=== PATIENT | male | born 1950 | race Two or more races ===

== ENCOUNTER 2017-07-19 07:54 | Outpatient (CLI) | payer OTHER ==
[~2017-07-19 07:54] MED LIST: ASA-EC81 MG; NABUMETONE500 MG PO; PERCOCET 5/3251 TAB PO; TAMS0.4C; TOPROL XL25 M1; VASOTEC20 MG
== END 2017-07-19 08:01 | disposition home or self-care (01) ==
LOC: LAB 07:54
DX: I10 Essential (primary) hypertension (principal); E66.8 Other obesity; Z96.651 Presence of right artificial knee joint; R07.89 Other chest pain; M22.41 Chondromalacia patellae, right knee; M67.863 Other specified disorders of tendon, right knee; M75.21 Bicipital tendinitis, right shoulder; N39.0 Urinary tract infection, site not specified; M12.00 Chronic postrheumatic arthropathy [Jaccoud], unspecified site; S83.31XA Tear of articular cartilage of right knee, current, initial encounter; M23.52 Chronic instability of knee, left knee; M23.221 Derangement of posterior horn of medial meniscus due to old tear or injury, right knee; M15.0 Primary generalized (osteo)arthritis; N41.0 Acute prostatitis; N39.3 Stress incontinence (female) (male)

== ENCOUNTER 2017-10-18 07:07 | Outpatient (CLI) | payer OTHER | END 2017-10-18 07:12 | disposition home or self-care (01) | LOC: LAB 07:07 | DX: I10 Essential (primary) hypertension (principal); E66.8 Other obesity; R07.89 Other chest pain; M22.41 Chondromalacia patellae, right knee; M67.863 Other specified disorders of tendon, right knee; M75.21 Bicipital tendinitis, right shoulder; N39.8 Other specified disorders of urinary system; M23.221 Derangement of posterior horn of medial meniscus due to old tear or injury, right knee; M15.0 Primary generalized (osteo)arthritis; N41.0 Acute prostatitis; N39.3 Stress incontinence (female) (male) ==

== ENCOUNTER 2017-10-20 09:58 | Outpatient (CLI) | payer OTHER | END 2017-10-20 10:04 | disposition home or self-care (01) | LOC: MRI 09:58 | DX: M54.16 Radiculopathy, lumbar region (principal) | CPT/HCPCS: 72148 ==

== ENCOUNTER 2017-12-19 21:14 | Emergency (ER) | payer OTHER ==
[~2017-12-19] VITALS: Ht 175.3 cm; Wt 108.9 kg
[2017-12-20] MEDS ORDERED: PHENERGAN25 MG PO (02:44)
[2017-12-20] MEDS ORDERED: PEPCID AC20 MG PO (02:44)
[2017-12-20] MEDS ORDERED: LEVSIN/SL0.125 MG PO (02:44)
== END 2017-12-20 03:07 | disposition home or self-care (01) ==
LOC: ER 21:14
DX: K29.60 Other gastritis without bleeding (principal); R10.84 Generalized abdominal pain

== ENCOUNTER 2018-04-27 10:06 | Emergency (ER) | payer OTHER ==
[~2018-04-27] VITALS: Ht 175.3 cm; Wt 104.3 kg
[~2018-04-27 10:06] MED LIST changes: +LEVSIN/SL0.125 MG PO; +PEPCID AC20 MG PO; +PHENERGAN25 MG PO
[2018-04-27] MEDS ORDERED: TOPROL XL100 M1 (10:31)
[2018-04-27] MEDS ORDERED: ENALAPRIL MALEA10 MG (10:31)
== END 2018-04-27 12:30 | disposition home or self-care (01) ==
LOC: ER 10:06
DX: M48.061 Spinal stenosis, lumbar region without neurogenic claudication (principal); M54.89 Other dorsalgia

== ENCOUNTER 2018-04-29 14:31 | Outpatient (CLI) | payer OTHER ==
[~2018-04-29 14:31] MED LIST changes: +ENALAPRIL MALEA10 MG; +TOPROL XL100 M1
== END 2018-04-29 14:37 | disposition home or self-care (01) ==
LOC: RAD 14:31
DX: M25.561 Pain in right knee (principal)

== ENCOUNTER 2018-05-01 07:26 | Outpatient (CLI) | payer OTHER | END 2018-05-01 07:37 | disposition home or self-care (01) | LOC: LAB 07:26 | DX: E66.8 Other obesity (principal); M22.41 Chondromalacia patellae, right knee; M67.863 Other specified disorders of tendon, right knee; M75.21 Bicipital tendinitis, right shoulder; N39.9 Disorder of urinary system, unspecified; M23.221 Derangement of posterior horn of medial meniscus due to old tear or injury, right knee; M15.0 Primary generalized (osteo)arthritis; N41.0 Acute prostatitis; N39.3 Stress incontinence (female) (male); I11.9 Hypertensive heart disease without heart failure; M51.36 Other intervertebral disc degeneration, lumbar region; M51.86 Other intervertebral disc disorders, lumbar region; R07.89 Other chest pain ==

== ENCOUNTER 2018-07-30 06:45 | Outpatient (CLI) | payer OTHER | END 2018-07-30 06:50 | disposition home or self-care (01) | LOC: LAB 06:45 | DX: M75.21 Bicipital tendinitis, right shoulder (principal); E66.8 Other obesity; I11.9 Hypertensive heart disease without heart failure; M51.36 Other intervertebral disc degeneration, lumbar region; M51.86 Other intervertebral disc disorders, lumbar region; N41.0 Acute prostatitis; M15.0 Primary generalized (osteo)arthritis; M23.221 Derangement of posterior horn of medial meniscus due to old tear or injury, right knee; M23.52 Chronic instability of knee, left knee; M15.9 Polyosteoarthritis, unspecified; M22.41 Chondromalacia patellae, right knee; M67.90 Unspecified disorder of synovium and tendon, unspecified site ==

== ENCOUNTER 2018-08-30 21:25 | Emergency (ER) | payer OTHER ==
[~2018-08-30] VITALS: Ht 175.3 cm; Wt 108.9 kg
[2018-08-30] MEDS ORDERED: ASPIR 8181 MG (21:45)
== END 2018-08-30 22:58 | disposition home or self-care (01) ==
LOC: ER 21:25
DX: M51.27 Other intervertebral disc displacement, lumbosacral region (principal)

== ENCOUNTER 2018-11-09 07:24 | Outpatient (CLI) | payer OTHER ==
[~2018-11-09 07:24] MED LIST changes: +ASPIR 8181 MG
== END 2018-11-09 07:33 | disposition home or self-care (01) ==
LOC: LAB 07:24
DX: I11.9 Hypertensive heart disease without heart failure (principal); Z68.36 Body mass index [BMI] 36.0-36.9, adult; M51.36 Other intervertebral disc degeneration, lumbar region; M51.86 Other intervertebral disc disorders, lumbar region; N39.3 Stress incontinence (female) (male); M15.0 Primary generalized (osteo)arthritis; M23.221 Derangement of posterior horn of medial meniscus due to old tear or injury, right knee; M23.52 Chronic instability of knee, left knee; M15.8 Other polyosteoarthritis; M12.00 Chronic postrheumatic arthropathy [Jaccoud], unspecified site; R07.89 Other chest pain; E66.8 Other obesity

== ENCOUNTER 2019-02-10 07:15 | Outpatient (CLI) | payer OTHER | END 2019-02-10 15:00 | disposition home or self-care (01) | LOC: LAB 07:15 | DX: Z68.36 Body mass index [BMI] 36.0-36.9, adult (principal); I11.9 Hypertensive heart disease without heart failure; M51.36 Other intervertebral disc degeneration, lumbar region; M51.86 Other intervertebral disc disorders, lumbar region; N39.3 Stress incontinence (female) (male); M15.0 Primary generalized (osteo)arthritis; M23.221 Derangement of posterior horn of medial meniscus due to old tear or injury, right knee; M23.52 Chronic instability of knee, left knee; M15.8 Other polyosteoarthritis; R07.89 Other chest pain; E66.8 Other obesity ==

== ENCOUNTER → 2019-06-03 | Outpatient (CLI) | payer OTHER | END | disposition home or self-care (01) | LOC: RAD 10:53 | DX: M75.51 Bursitis of right shoulder (principal); M75.52 Bursitis of left shoulder; M05.79 Rheumatoid arthritis with rheumatoid factor of multiple sites without organ or systems involvement; M54.2 Cervicalgia; M79.641 Pain in right hand ==

== ENCOUNTER 2019-06-12 07:14 | Outpatient (CLI) | payer OTHER | END 2019-06-12 07:30 | disposition home or self-care (01) | LOC: LAB 07:14 | DX: M54.5 Low back pain (principal); Z01.810 Encounter for preprocedural cardiovascular examination; Z68.36 Body mass index [BMI] 36.0-36.9, adult; I11.9 Hypertensive heart disease without heart failure; M51.36 Other intervertebral disc degeneration, lumbar region; M51.86 Other intervertebral disc disorders, lumbar region; N41.0 Acute prostatitis; M23.221 Derangement of posterior horn of medial meniscus due to old tear or injury, right knee; M23.52 Chronic instability of knee, left knee; E66.8 Other obesity; N39.3 Stress incontinence (female) (male); M15.0 Primary generalized (osteo)arthritis; M15.8 Other polyosteoarthritis; R07.89 Other chest pain ==

== ENCOUNTER 2019-09-11 07:10 | Outpatient (CLI) | payer OTHER | END 2019-09-11 07:34 | disposition home or self-care (01) | LOC: LAB 07:10 | DX: R97.20 Elevated prostate specific antigen [PSA] (principal); Z01.810 Encounter for preprocedural cardiovascular examination; M54.5 Low back pain; Z68.36 Body mass index [BMI] 36.0-36.9, adult; I11.9 Hypertensive heart disease without heart failure; M51.36 Other intervertebral disc degeneration, lumbar region; M51.86 Other intervertebral disc disorders, lumbar region; N41.0 Acute prostatitis; M23.221 Derangement of posterior horn of medial meniscus due to old tear or injury, right knee; M23.52 Chronic instability of knee, left knee; E66.8 Other obesity; M51.06 Intervertebral disc disorders with myelopathy, lumbar region; M70.22 Olecranon bursitis, left elbow; N39.3 Stress incontinence (female) (male); M15.0 Primary generalized (osteo)arthritis; M15.8 Other polyosteoarthritis; R07.89 Other chest pain ==

== ENCOUNTER → 2019-12-11 07:30 | Outpatient (CLI) | payer OTHER | END | disposition home or self-care (01) | LOC: LAB 07:30 | PROVIDERS: ATTEND Internal Medicine | DX: R97.20 Elevated prostate specific antigen [PSA] (principal); R07.89 Other chest pain; N39.3 Stress incontinence (female) (male); Z01.810 Encounter for preprocedural cardiovascular examination; M54.5 Low back pain; Z68.36 Body mass index [BMI] 36.0-36.9, adult; I11.9 Hypertensive heart disease without heart failure; M51.36 Other intervertebral disc degeneration, lumbar region; M51.86 Other intervertebral disc disorders, lumbar region; N41.0 Acute prostatitis; M23.221 Derangement of posterior horn of medial meniscus due to old tear or injury, right knee; M23.52 Chronic instability of knee, left knee; E66.8 Other obesity; M51.06 Intervertebral disc disorders with myelopathy, lumbar region; M70.51 Other bursitis of knee, right knee; M54.17 Radiculopathy, lumbosacral region; M70.22 Olecranon bursitis, left elbow; M15.0 Primary generalized (osteo)arthritis; M15.8 Other polyosteoarthritis; Z12.11 Encounter for screening for malignant neoplasm of colon ==

== ENCOUNTER 2020-01-27 09:16 | Outpatient (CLI) | payer OTHER | END 2020-01-27 09:23 | disposition home or self-care (01) | LOC: RAD 09:16 | PROVIDERS: ATTEND Internal Medicine Rheumatology | DX: M15.0 Primary generalized (osteo)arthritis (principal); M05.79 Rheumatoid arthritis with rheumatoid factor of multiple sites without organ or systems involvement ==

== ENCOUNTER → 2020-03-11 07:35 | Outpatient (CLI) | payer OTHER | END | disposition home or self-care (01) | LOC: LAB 07:35 | PROVIDERS: ATTEND Internal Medicine | DX: I10 Essential (primary) hypertension (principal); M54.5 Low back pain; Z01.810 Encounter for preprocedural cardiovascular examination; Z68.36 Body mass index [BMI] 36.0-36.9, adult; M51.36 Other intervertebral disc degeneration, lumbar region; M51.86 Other intervertebral disc disorders, lumbar region; N41.0 Acute prostatitis; M23.231 Derangement of other medial meniscus due to old tear or injury, right knee; M23.52 Chronic instability of knee, left knee; E66.8 Other obesity; M51.06 Intervertebral disc disorders with myelopathy, lumbar region; M70.51 Other bursitis of knee, right knee; M54.17 Radiculopathy, lumbosacral region; M70.22 Olecranon bursitis, left elbow; R97.20 Elevated prostate specific antigen [PSA]; N39.3 Stress incontinence (female) (male); M15.0 Primary generalized (osteo)arthritis; M15.8 Other polyosteoarthritis; R07.89 Other chest pain ==

== ENCOUNTER 2020-06-10 07:21 | Outpatient (CLI) | payer OTHER | END 2020-06-10 07:25 | disposition home or self-care (01) | LOC: LAB 07:21 | PROVIDERS: ATTEND Internal Medicine | DX: I10 Essential (primary) hypertension (principal); Z12.11 Encounter for screening for malignant neoplasm of colon; M54.5 Low back pain; Z01.810 Encounter for preprocedural cardiovascular examination; Z68.36 Body mass index [BMI] 36.0-36.9, adult; M51.36 Other intervertebral disc degeneration, lumbar region; M51.86 Other intervertebral disc disorders, lumbar region; N41.0 Acute prostatitis; M23.221 Derangement of posterior horn of medial meniscus due to old tear or injury, right knee; M23.52 Chronic instability of knee, left knee; E66.8 Other obesity; M51.06 Intervertebral disc disorders with myelopathy, lumbar region; M70.51 Other bursitis of knee, right knee; M70.22 Olecranon bursitis, left elbow; R97.20 Elevated prostate specific antigen [PSA]; N39.3 Stress incontinence (female) (male); M15.0 Primary generalized (osteo)arthritis; M15.8 Other polyosteoarthritis; R07.89 Other chest pain ==

== ENCOUNTER 2020-09-09 07:30 | Outpatient (CLI) | payer OTHER ==
[2020-12-30] MEDS ORDERED: LEVOFLOXACIN5 ML (09:26)
[2020-12-30] MEDS ORDERED: CARAFATE1 GM (09:27)
[2020-12-30] MEDS ORDERED: LEVSIN0.125 MG PO (12:05)
== END 2020-09-09 07:36 | disposition home or self-care (01) ==
LOC: LAB 07:30
PROVIDERS: ATTEND Internal Medicine
DX: N41.8 Other inflammatory diseases of prostate (principal); Z12.11 Encounter for screening for malignant neoplasm of colon; I10 Essential (primary) hypertension; M54.5 Low back pain; Z01.810 Encounter for preprocedural cardiovascular examination; Z68.36 Body mass index [BMI] 36.0-36.9, adult; I11.9 Hypertensive heart disease without heart failure; M51.36 Other intervertebral disc degeneration, lumbar region; M51.86 Other intervertebral disc disorders, lumbar region; N41.0 Acute prostatitis; M23.221 Derangement of posterior horn of medial meniscus due to old tear or injury, right knee; M23.52 Chronic instability of knee, left knee; E66.8 Other obesity; M51.06 Intervertebral disc disorders with myelopathy, lumbar region; M70.51 Other bursitis of knee, right knee; M54.17 Radiculopathy, lumbosacral region; M70.22 Olecranon bursitis, left elbow; R97.20 Elevated prostate specific antigen [PSA]; N39.0 Urinary tract infection, site not specified; M15.0 Primary generalized (osteo)arthritis; M15.8 Other polyosteoarthritis; R97.8 Other abnormal tumor markers

== ENCOUNTER 2020-11-27 18:39 | Emergency (ER) | payer OTHER ==
[~2020-11-27] VITALS: Ht 175.3 cm; Wt 122.5 kg
[2020-12-30] MEDS ORDERED: LEVOFLOXACIN5 ML (09:26)
[2020-12-30] MEDS ORDERED: CARAFATE1 GM (09:27)
[2020-12-30] MEDS ORDERED: LEVSIN0.125 MG PO (12:05)
== END 2020-11-28 07:43 | disposition home or self-care (01) ==
LOC: ER 18:39
DX: S00.83XA Contusion of other part of head, initial encounter (principal); I63.89 Other cerebral infarction; R53.1 Weakness; R47.81 Slurred speech; I10 Essential (primary) hypertension; M54.2 Cervicalgia; W06.XXXA Fall from bed, initial encounter; Y93.89 Activity, other specified; Y92.013 Bedroom of single-family (private) house as the place of occurrence of the external cause; Y99.8 Other external cause status; Z03.818 Encounter for observation for suspected exposure to other biological agents ruled out

== ENCOUNTER 2020-11-29 06:16 | Outpatient (CLI) | payer OTHER ==
[2020-12-30] MEDS ORDERED: LEVOFLOXACIN5 ML (09:26)
[2020-12-30] MEDS ORDERED: CARAFATE1 GM (09:27)
[2020-12-30] MEDS ORDERED: LEVSIN0.125 MG PO (12:05)
== END 2020-11-29 06:17 | disposition home or self-care (01) ==
LOC: LAB 06:16
PROVIDERS: ATTEND Internal Medicine
DX: I10 Essential (primary) hypertension (principal); M54.5 Low back pain; Z68.36 Body mass index [BMI] 36.0-36.9, adult; I11.9 Hypertensive heart disease without heart failure; M51.36 Other intervertebral disc degeneration, lumbar region; M51.86 Other intervertebral disc disorders, lumbar region; N41.0 Acute prostatitis; M23.221 Derangement of posterior horn of medial meniscus due to old tear or injury, right knee; M23.52 Chronic instability of knee, left knee; E66.8 Other obesity; M51.06 Intervertebral disc disorders with myelopathy, lumbar region; M70.51 Other bursitis of knee, right knee; M54.17 Radiculopathy, lumbosacral region; M70.22 Olecranon bursitis, left elbow; R97.20 Elevated prostate specific antigen [PSA]; J06.9 Acute upper respiratory infection, unspecified; N39.3 Stress incontinence (female) (male); M15.0 Primary generalized (osteo)arthritis; M15.8 Other polyosteoarthritis; R07.89 Other chest pain

== ENCOUNTER 2020-12-27 11:25 | Emergency (ER) | payer OTHER ==
[~2020-12-27] VITALS: Ht 175.3 cm; Wt 120.2 kg
[2020-12-27] MEDS ORDERED: BAYER THERAPY325 MG PO (11:39)
[2020-12-30] MEDS ORDERED: LEVOFLOXACIN5 ML (09:26)
[2020-12-30] MEDS ORDERED: CARAFATE1 GM (09:27)
[2020-12-30] MEDS ORDERED: LEVSIN0.125 MG PO (12:05)
== END 2020-12-27 16:29 | disposition home or self-care (01) ==
LOC: ER 11:25
DX: K29.70 Gastritis, unspecified, without bleeding (principal); M25.511 Pain in right shoulder

== ENCOUNTER → 2020-12-30 | Emergency (ER) | payer OTHER ==
[~2020-12-30] VITALS: Ht 175.3 cm; Wt 117.9 kg
[~2020-12-30] MED LIST changes: +BAYER THERAPY325 MG PO; +CARAFATE1 GM; +LEVOFLOXACIN5 ML; +LEVSIN0.125 MG PO
== END | disposition home or self-care (01) ==
LOC: ER 09:05
DX: K29.60 Other gastritis without bleeding (principal)

== ENCOUNTER 2021-01-03 10:50 | Emergency (ER) | payer OTHER ==
[~2021-01-03] VITALS: Ht 175.3 cm; Wt 117.9 kg
== END 2021-01-03 15:30 | disposition home or self-care (01) ==
LOC: ER 10:50
DX: K29.70 Gastritis, unspecified, without bleeding (principal)

== ENCOUNTER 2021-01-26 16:58 | Emergency (ER) | payer OTHER ==
[~2021-01-26] VITALS: Ht 175.3 cm; Wt 86.2 kg
== END 2021-01-26 20:56 | disposition home or self-care (01) ==
LOC: ER 16:58
DX: I16.1 Hypertensive emergency (principal); I10 Essential (primary) hypertension; F41.8 Other specified anxiety disorders

== ENCOUNTER → 2021-03-30 06:59 | Outpatient (CLI) | payer OTHER | END | disposition home or self-care (01) | LOC: LAB 06:59 | PROVIDERS: ATTEND Internal Medicine | DX: I10 Essential (primary) hypertension (principal); M54.59 Other low back pain; Z68.36 Body mass index [BMI] 36.0-36.9, adult; I11.9 Hypertensive heart disease without heart failure; M51.36 Other intervertebral disc degeneration, lumbar region; M51.86 Other intervertebral disc disorders, lumbar region; N41.0 Acute prostatitis; M23.221 Derangement of posterior horn of medial meniscus due to old tear or injury, right knee; M23.52 Chronic instability of knee, left knee; E66.8 Other obesity; M51.06 Intervertebral disc disorders with myelopathy, lumbar region; M70.51 Other bursitis of knee, right knee; M54.17 Radiculopathy, lumbosacral region; M70.22 Olecranon bursitis, left elbow; R97.20 Elevated prostate specific antigen [PSA]; J06.9 Acute upper respiratory infection, unspecified; I33.9 Acute and subacute endocarditis, unspecified; N39.0 Urinary tract infection, site not specified; M15.0 Primary generalized (osteo)arthritis; M15.8 Other polyosteoarthritis; R07.89 Other chest pain ==

== ENCOUNTER 2021-07-05 12:42 | Outpatient (CLI) | payer OTHER | END 2021-07-05 12:50 | disposition home or self-care (01) | LOC: RAD 12:42 | PROVIDERS: ATTEND Internal Medicine | DX: I11.9 Hypertensive heart disease without heart failure (principal); M54.59 Other low back pain; M51.36 Other intervertebral disc degeneration, lumbar region; M51.86 Other intervertebral disc disorders, lumbar region; M23.221 Derangement of posterior horn of medial meniscus due to old tear or injury, right knee; I33.9 Acute and subacute endocarditis, unspecified; I69.90 Unspecified sequelae of unspecified cerebrovascular disease; J06.9 Acute upper respiratory infection, unspecified; Z68.36 Body mass index [BMI] 36.0-36.9, adult; E66.8 Other obesity; M05.79 Rheumatoid arthritis with rheumatoid factor of multiple sites without organ or systems involvement ==

== ENCOUNTER 2021-07-06 06:34 | Outpatient (CLI) | payer OTHER | END 2021-07-06 06:35 | disposition home or self-care (01) | LOC: LAB 06:34 | PROVIDERS: ATTEND Internal Medicine | DX: I10 Essential (primary) hypertension (principal); M54.50 Low back pain, unspecified; M51.36 Other intervertebral disc degeneration, lumbar region; M23.221 Derangement of posterior horn of medial meniscus due to old tear or injury, right knee; I33.9 Acute and subacute endocarditis, unspecified; I69.90 Unspecified sequelae of unspecified cerebrovascular disease; J06.9 Acute upper respiratory infection, unspecified; Z68.36 Body mass index [BMI] 36.0-36.9, adult; E66.8 Other obesity ==

== ENCOUNTER 2021-12-14 06:14 | Outpatient (CLI) | payer OTHER ==
[~2021-12-14 06:14] MED LIST changes: +BUTALBIT-ACETA1 EACH PO
== END 2021-12-14 06:16 | disposition home or self-care (01) ==
LOC: LAB 06:14
PROVIDERS: ATTEND Internal Medicine
DX: I10 Essential (primary) hypertension (principal); M54.50 Low back pain, unspecified; M51.36 Other intervertebral disc degeneration, lumbar region; M51.86 Other intervertebral disc disorders, lumbar region; M23.221 Derangement of posterior horn of medial meniscus due to old tear or injury, right knee; I33.9 Acute and subacute endocarditis, unspecified; I69.90 Unspecified sequelae of unspecified cerebrovascular disease; J06.9 Acute upper respiratory infection, unspecified; Z95.810 Presence of automatic (implantable) cardiac defibrillator; E66.8 Other obesity; Z68.36 Body mass index [BMI] 36.0-36.9, adult; Z12.11 Encounter for screening for malignant neoplasm of colon

== ENCOUNTER 2022-02-12 06:43 | Outpatient (CLI) | payer OTHER | END 2022-02-12 06:49 | disposition home or self-care (01) | LOC: LAB 06:43 | PROVIDERS: ATTEND Psychiatry & Neurology Neurology | DX: R74.8 Abnormal levels of other serum enzymes (principal); I63.411 Cerebral infarction due to embolism of right middle cerebral artery; I48.91 Unspecified atrial fibrillation; R79.89 Other specified abnormal findings of blood chemistry; R82.90 Unspecified abnormal findings in urine ==

== ENCOUNTER 2022-02-12 08:02 | Outpatient (CLI) | payer OTHER | END 2022-02-12 08:06 | disposition home or self-care (01) | LOC: TOM 08:02 | PROVIDERS: ATTEND Psychiatry & Neurology Neurology | DX: I63.411 Cerebral infarction due to embolism of right middle cerebral artery (principal); I48.91 Unspecified atrial fibrillation ==

== ENCOUNTER 2022-03-12 09:53 | Outpatient (CLI) | payer OTHER | END 2022-03-12 09:58 | disposition home or self-care (01) | LOC: RAD 09:53 | PROVIDERS: ATTEND Internal Medicine Rheumatology | DX: M15.0 Primary generalized (osteo)arthritis (principal); M75.52 Bursitis of left shoulder; M75.51 Bursitis of right shoulder; M05.29 Rheumatoid vasculitis with rheumatoid arthritis of multiple sites ==

== ENCOUNTER 2022-04-03 06:22 | Emergency (ER) | payer OTHER ==
[~2022-04-03] VITALS: Ht 175.3 cm; Wt 90.7 kg
[2022-04-03] MEDS ORDERED: ZITHROMAX500 MG PO (12:14)
[2022-04-03] MEDS ORDERED: TUSSI PRES-B L480 ML PO (12:14)
[2022-04-03] MEDS ORDERED: MEDROLPACK PO (12:14)
== END 2022-04-03 12:45 | disposition home or self-care (01) ==
LOC: ER 06:22
DX: J06.9 Acute upper respiratory infection, unspecified (principal); Z20.822 Contact with and (suspected) exposure to COVID-19

== ENCOUNTER 2022-04-10 06:15 | Outpatient (CLI) | payer OTHER ==
[~2022-04-10 06:15] MED LIST changes: +MEDROLPACK PO; +TUSSI PRES-B L480 ML PO; +ZITHROMAX500 MG PO
== END 2022-04-10 06:16 | disposition home or self-care (01) ==
LOC: LAB 06:15
PROVIDERS: ATTEND Internal Medicine
DX: I10 Essential (primary) hypertension (principal); M54.50 Low back pain, unspecified; I11.9 Hypertensive heart disease without heart failure; I33.9 Acute and subacute endocarditis, unspecified; I69.90 Unspecified sequelae of unspecified cerebrovascular disease; Z95.810 Presence of automatic (implantable) cardiac defibrillator; Z68.36 Body mass index [BMI] 36.0-36.9, adult; E66.8 Other obesity

== ENCOUNTER 2022-06-23 06:29 | Emergency (ER) | payer OTHER ==
[~2022-06-23] VITALS: Ht 175.3 cm; Wt 89.8 kg
[2022-06-23] MEDS ORDERED: XARELTO20 MG (07:13)
[2022-06-23] MEDS ORDERED: MEDROLPACK PO (10:18)
[2022-06-23] MEDS ORDERED: AMOX-CLAV 875-1 EACH PO (10:18)
[2022-06-23] MEDS ORDERED: TUSSIN DM SYRU118 ML PO (10:19)
[2022-06-23] MEDS ORDERED: XOPENEX0.63 MG/3 IH (10:19)
== END 2022-06-23 12:12 | disposition home or self-care (01) ==
LOC: ER 06:29
DX: J40 Bronchitis, not specified as acute or chronic (principal)

== ENCOUNTER → 2022-07-17 06:43 | Outpatient (CLI) | payer OTHER ==
[~2022-07-17 06:43] MED LIST changes: +ALDACTONE25 MG; +AMOX-CLAV 875-1 EACH PO; +LASIX20 MG; +PROTONIX40 M1; +TUSSIN DM SYRU118 ML PO; +XARELTO20 MG; +XOPENEX0.63 MG/3 IH
== END | disposition home or self-care (01) ==
LOC: LAB 06:43
PROVIDERS: ATTEND Internal Medicine
DX: M54.59 Other low back pain (principal); I11.9 Hypertensive heart disease without heart failure; I33.9 Acute and subacute endocarditis, unspecified; I69.90 Unspecified sequelae of unspecified cerebrovascular disease; Z95.810 Presence of automatic (implantable) cardiac defibrillator; J06.9 Acute upper respiratory infection, unspecified; Z68.36 Body mass index [BMI] 36.0-36.9, adult; E66.8 Other obesity

== ENCOUNTER 2022-08-20 10:00 | Outpatient (CLI) | payer OTHER | END 2022-08-20 10:07 | disposition home or self-care (01) | LOC: TOM 10:00 | PROVIDERS: ATTEND Otolaryngology Plastic Surgery within the Head & Neck | DX: J32.8 Other chronic sinusitis (principal) ==

== ENCOUNTER 2022-10-05 07:16 | Emergency (ER) | payer OTHER ==
[~2022-10-05] VITALS: Ht 175.3 cm; Wt 81.6 kg
== END 2022-10-05 08:22 | disposition home or self-care (01) ==
LOC: ER 07:16
DX: J06.9 Acute upper respiratory infection, unspecified (principal)

== ENCOUNTER 2022-10-07 06:25 | Outpatient (CLI) | payer OTHER | END 2022-10-07 06:26 | disposition home or self-care (01) | LOC: LAB 06:25 | PROVIDERS: ATTEND Specialist | DX: N40.0 Benign prostatic hyperplasia without lower urinary tract symptoms (principal) ==

== ENCOUNTER 2022-10-10 06:21 | Outpatient (CLI) | payer OTHER | END 2022-10-10 06:22 | disposition home or self-care (01) | LOC: LAB 06:21 | PROVIDERS: ATTEND Internal Medicine | DX: M54.59 Other low back pain (principal); I10 Essential (primary) hypertension; I11.9 Hypertensive heart disease without heart failure; I33.9 Acute and subacute endocarditis, unspecified; I69.90 Unspecified sequelae of unspecified cerebrovascular disease; Z95.810 Presence of automatic (implantable) cardiac defibrillator; J06.9 Acute upper respiratory infection, unspecified; Z68.36 Body mass index [BMI] 36.0-36.9, adult; E66.8 Other obesity ==

== ENCOUNTER 2022-10-31 09:57 | Outpatient (CLI) | payer OTHER | END 2022-10-31 10:09 | disposition home or self-care (01) | LOC: RAD 09:57 | PROVIDERS: ATTEND Internal Medicine Rheumatology | DX: M75.51 Bursitis of right shoulder (principal); M15.0 Primary generalized (osteo)arthritis; M05.29 Rheumatoid vasculitis with rheumatoid arthritis of multiple sites ==

== ENCOUNTER 2022-11-13 14:31 | Outpatient (CLI) | payer OTHER | END 2022-11-13 14:44 | disposition home or self-care (01) | LOC: RAD 14:31 | PROVIDERS: ATTEND Internal Medicine Rheumatology | DX: M15.0 Primary generalized (osteo)arthritis (principal); M05.29 Rheumatoid vasculitis with rheumatoid arthritis of multiple sites; M65.872 Other synovitis and tenosynovitis, left ankle and foot; M65.871 Other synovitis and tenosynovitis, right ankle and foot ==

== ENCOUNTER 2023-01-11 07:04 | Outpatient (CLI) | payer OTHER | END 2023-01-11 07:06 | disposition home or self-care (01) | LOC: LAB 07:04 | PROVIDERS: ATTEND Internal Medicine | DX: M54.59 Other low back pain (principal); I11.9 Hypertensive heart disease without heart failure; I69.90 Unspecified sequelae of unspecified cerebrovascular disease; Z95.810 Presence of automatic (implantable) cardiac defibrillator; Z68.36 Body mass index [BMI] 36.0-36.9, adult; E66.8 Other obesity; Z12.11 Encounter for screening for malignant neoplasm of colon; N41.8 Other inflammatory diseases of prostate; I33.9 Acute and subacute endocarditis, unspecified ==

== ENCOUNTER 2023-03-20 10:56 | Outpatient (CLI) | payer OTHER | END 2023-03-20 11:02 | disposition home or self-care (01) | LOC: RAD 10:56 | PROVIDERS: ATTEND Internal Medicine Pulmonary Disease | DX: J44.1 Chronic obstructive pulmonary disease with (acute) exacerbation (principal) ==

== ENCOUNTER 2023-03-24 13:08 | Outpatient (CLI) | payer OTHER | END 2023-03-24 13:17 | disposition home or self-care (01) | LOC: RAD 13:08 | PROVIDERS: ATTEND Podiatrist Foot Surgery | DX: M77.31 Calcaneal spur, right foot (principal); M77.32 Calcaneal spur, left foot ==

== ENCOUNTER 2023-03-26 08:41 | Outpatient (CLI) | payer OTHER | END 2023-03-26 08:53 | disposition home or self-care (01) | LOC: MRI 08:41 | PROVIDERS: ATTEND Podiatrist Foot Surgery | DX: S86.012A Strain of left Achilles tendon, initial encounter (principal) | CPT/HCPCS: 73721 ==

== ENCOUNTER → 2023-04-25 06:06 | Outpatient (CLI) | payer OTHER ==
[2023-04-25 07:10] LABS: PH,URINE 6.5 (5.0-8.0); URINE APPEARANCE Clear; URINE BILIRRUBIN Negative (NEGATIVE); URINE BLOOD Negative; URINE COLOR Yellow; URINE GLUCOSE Negative (NEGATIVE); URINE LEUKOCYTE Negative; URINE NITRATE Negative; URINE PROTEIN Negative (NEGATIVE); URINE UROBILINOGEN 0.2 E.U./dl
[2023-04-25 07:14] LABS: URINE RBC 6.6 uL (0.0-20.8)
[2023-04-25 07:21] LABS: URINE BACTERIA 2.5 uL (0.0-1933); URINE EPITHELIAL CELLS 0.6 uL (0.0-38.8); URINE WBC 1.5 uL (0.0-23.2)
[2023-04-25 07:25] LABS: HEMATOCRIT 40.5 % (39.0-48.0); HEMOGLOBIN 13.6 g/dL (13-16.00); MEAN CELL VOLUME 81.3 fL (80.0-100.00); MEAN CORPUSCULAR HEMOGLOBIN 27.3 pg (27.00-32.0); MEAN CORPUSCULAR HGB CONC 33.6 g/dl (32.0-36.0); PLATELET COUNT 231 K/uL (150-450); RED BLOOD COUNT 4.98 M/uL (4.00-6.00); RED CELL DISTRIBUTION WIDTH 16.2 % (11.5-14.5)
[2023-04-25 07:52] LABS: ALBUMIN 3.5 gm/dL (3.4-5.0); BILIRUBIN TOTAL 1.35 mg/dL (0.3-1.2); CALCIUM 9.1 mg/dL (8.5-10.1); CREATININE SERUM 1.1 mg/dL (0.70-1.30); GFR 65.44; POTASSIUM 4.71 mEq/L (3.5-5.1); TOTAL PROTEIN 6.5 gm/dL (6.4-8.2)
[2023-04-25 08:27] LABS: CHOLESTEROL 157 mg/dL (0-200); TRIGLYCERIDES 145 mg/dL (0-150)
== END | disposition home or self-care (01) ==
LOC: LAB 06:06
PROVIDERS: Psychiatry & Neurology Neurology; ATTEND Internal Medicine
DX: M54.59 Other low back pain (principal); I11.9 Hypertensive heart disease without heart failure; I33.9 Acute and subacute endocarditis, unspecified; I69.90 Unspecified sequelae of unspecified cerebrovascular disease; Z95.810 Presence of automatic (implantable) cardiac defibrillator; J06.9 Acute upper respiratory infection, unspecified; Z68.36 Body mass index [BMI] 36.0-36.9, adult; E66.8 Other obesity

== ENCOUNTER 2023-05-21 06:32 | Outpatient (CLI) | payer OTHER ==
[2023-05-21 07:50] LABS: HEMATOCRIT 41.4 % (39.0-48.0); HEMOGLOBIN 13.5 g/dL (13-16.00); MEAN CELL VOLUME 82.1 fL (80.0-100.00); MEAN CORPUSCULAR HEMOGLOBIN 26.8 pg (27.00-32.0); MEAN CORPUSCULAR HGB CONC 32.7 g/dl (32.0-36.0); PLATELET COUNT 244 K/uL (150-450); RED BLOOD COUNT 5.04 M/uL (4.00-6.00); RED CELL DISTRIBUTION WIDTH 15.3 % (11.5-14.5)
[2023-05-21 08:17] LABS: INR 1.11; PARTIAL THROMBOPLASTIN TIME 29.6 SECONDS (22.0-34.0); PROTHROMBIN TIME 11.6 SECONDS (9.0-11.5)
[2023-05-21 08:24] LABS: CALCIUM 9.4 mg/dL (8.5-10.1); CREATININE SERUM 1.02 mg/dL (0.70-1.30); GFR 71.39; POTASSIUM 4.71 mEq/L (3.5-5.1)
== END 2023-05-21 06:37 | disposition home or self-care (01) ==
LOC: LAB 06:32
PROVIDERS: ATTEND Ophthalmology
DX: E78.2 Mixed hyperlipidemia (principal); D68.8 Other specified coagulation defects

== ENCOUNTER 2023-07-15 11:28 | Outpatient (CLI) | payer OTHER ==
[2023-07-15 12:48] LABS: URIC ACID 5.7 mg/dL (3.5-8.5)
[2023-07-15 12:50] LABS: C-REACTIVE PROTEIN < 0.29 MG/DL (0.00-0.29)
== END 2023-07-15 11:29 | disposition home or self-care (01) ==
LOC: LAB 11:28
PROVIDERS: ATTEND Physical Medicine & Rehabilitation
DX: M06.09 Rheumatoid arthritis without rheumatoid factor, multiple sites (principal); M10.9 Gout, unspecified

== ENCOUNTER 2023-07-24 06:52 | Outpatient (CLI) | payer OTHER ==
[2023-07-24 07:41] LABS: PH,URINE 6.5 (5.0-8.0); URINE APPEARANCE Clear; URINE BILIRRUBIN Negative (NEGATIVE); URINE BLOOD Negative; URINE COLOR Yellow; URINE GLUCOSE Negative (NEGATIVE); URINE LEUKOCYTE Negative; URINE NITRATE Negative; URINE PROTEIN Negative (NEGATIVE)
[2023-07-24 07:42] LABS: URINE RBC 10.7 uL (0.0-20.8); URINE WBC 2.4 uL (0.0-23.2)
[2023-07-24 07:44] LABS: HEMATOCRIT 41.8 % (39.0-48.0); HEMOGLOBIN 13.8 g/dL (13-16.00); MEAN CELL VOLUME 82.2 fL (80.0-100.00); MEAN CORPUSCULAR HEMOGLOBIN 27.3 pg (27.00-32.0); MEAN CORPUSCULAR HGB CONC 33.2 g/dl (32.0-36.0); PLATELET COUNT 218 K/uL (150-450); RED BLOOD COUNT 5.08 M/uL (4.00-6.00); RED CELL DISTRIBUTION WIDTH 14.4 % (11.5-14.5)
[2023-07-24 07:48] LABS: URINE BACTERIA 2.5 uL (0.0-1933)
[2023-07-24 08:15] LABS: BILIRUBIN TOTAL 1.93 mg/dL (0.3-1.2); CALCIUM 9.7 mg/dL (8.5-10.1); CHOL HDL RATIO 2.6 (0-5.0); CREATININE SERUM 1.16 mg/dL (0.70-1.30); GFR 61.54; GLOBULINA 3.3 G/DL (2.4-3.5); POTASSIUM 4.82 mEq/L (3.5-5.1); TOTAL PROTEIN 7.3 gm/dL (6.4-8.2)
[2023-07-24 08:22] LABS: ob POSITIVE (NEGATIVE)
== END 2023-07-24 06:53 | disposition home or self-care (01) ==
LOC: LAB 06:52
PROVIDERS: ATTEND Internal Medicine
DX: M54.50 Low back pain, unspecified (principal); I11.9 Hypertensive heart disease without heart failure; I33.9 Acute and subacute endocarditis, unspecified; I69.90 Unspecified sequelae of unspecified cerebrovascular disease; Z95.810 Presence of automatic (implantable) cardiac defibrillator; J06.9 Acute upper respiratory infection, unspecified; Z68.36 Body mass index [BMI] 36.0-36.9, adult; E66.8 Other obesity; Z12.11 Encounter for screening for malignant neoplasm of colon

== ENCOUNTER 2023-08-22 09:07 | Outpatient (CLI) | payer OTHER | END 2023-08-22 09:09 | disposition home or self-care (01) | LOC: LAB 09:07 | PROVIDERS: ATTEND Internal Medicine | DX: D72.10 Eosinophilia, unspecified (principal) ==

== ENCOUNTER 2023-08-27 10:41 | Outpatient (CLI) | payer OTHER | END 2023-08-27 10:47 | disposition home or self-care (01) | LOC: TOM 10:41 | DX: J32.8 Other chronic sinusitis (principal) ==

== ENCOUNTER 2023-11-25 10:29 | Outpatient (CLI) | payer OTHER | END 2023-11-25 10:54 | disposition home or self-care (01) | LOC: LAB 10:29 | DX: I60.8 Other nontraumatic subarachnoid hemorrhage (principal); I60.9 Nontraumatic subarachnoid hemorrhage, unspecified; I61.8 Other nontraumatic intracerebral hemorrhage; I61.9 Nontraumatic intracerebral hemorrhage, unspecified; I63.9 Cerebral infarction, unspecified; I10 Essential (primary) hypertension; E11.9 Type 2 diabetes mellitus without complications; E78.5 Hyperlipidemia, unspecified; R79.89 Other specified abnormal findings of blood chemistry; E55.9 Vitamin D deficiency, unspecified; I63.419 Cerebral infarction due to embolism of unspecified middle cerebral artery ==

== ENCOUNTER → 2023-12-18 06:05 | Outpatient (CLI) | payer OTHER ==
[2023-12-18 08:26] LABS: ALBUMIN 3.6 gm/dL (3.4-5.0); BILIRUBIN TOTAL 1.26 mg/dL (0.3-1.2); CREATININE SERUM 0.98 mg/dL (0.70-1.30); GFR 74.56; GLOBULINA 3.1 G/DL (2.4-3.5); POTASSIUM 4.88 mEq/L (3.5-5.1); PROSTATIC SPECIFIC ANTIGEN 1.02 NG/ML (0.010-4.00); TOTAL PROTEIN 6.7 gm/dL (6.4-8.2)
== END | disposition home or self-care (01) ==
LOC: LAB 06:05
PROVIDERS: ATTEND Specialist
DX: N40.1 Benign prostatic hyperplasia with lower urinary tract symptoms (principal)

== ENCOUNTER → 2023-12-30 06:09 | Outpatient (CLI) | payer OTHER ==
[2023-12-30 06:54] LABS: PH,URINE 7.5 (5.0-8.0); URINE APPEARANCE Clear; URINE BACTERIA 51.6 uL (0.0-1933); URINE BILIRRUBIN Negative (NEGATIVE); URINE BLOOD Negative; URINE COLOR Yellow; URINE EPITHELIAL CELLS 5.5 uL (0.0-38.8); URINE GLUCOSE Negative (NEGATIVE); URINE KETONE Negative (NEGATIVE); URINE LEUKOCYTE Negative; URINE NITRATE Negative; URINE PROTEIN Negative (NEGATIVE); URINE RBC 17.4 uL (0.0-20.8); URINE WBC 2.3 uL (0.0-23.2)
[2023-12-30 07:03] LABS: URINE CAST 0.15 uL (0.0-1.40)
[2023-12-30 07:04] LABS: HEMATOCRIT 40.8 % (39.0-48.0); HEMOGLOBIN 13.4 g/dL (13-16.00); MEAN CELL VOLUME 82.4 fL (80.0-100.00); MEAN CORPUSCULAR HEMOGLOBIN 27.2 pg (27.00-32.0); PLATELET COUNT 242 K/uL (150-450); RED BLOOD COUNT 4.95 M/uL (4.00-6.00); RED CELL DISTRIBUTION WIDTH 15.5 % (11.5-14.5)
[2023-12-30 07:10] LABS: INR 1.14; PARTIAL THROMBOPLASTIN TIME 31.6 SECONDS (22.0-34.0); PROTHROMBIN TIME 11.9 SECONDS (9.0-11.5)
[2023-12-30 07:37] LABS: ALBUMIN 3.8 gm/dL (3.4-5.0); BILIRUBIN TOTAL 1.07 mg/dL (0.3-1.2); CALCIUM 9.5 mg/dL (8.5-10.1); CREATININE SERUM 0.97 mg/dL (0.70-1.30); GFR 75.45; GLOBULINA 3.1 G/DL (2.4-3.5); POTASSIUM 4.84 mEq/L (3.5-5.1); TOTAL PROTEIN 6.9 gm/dL (6.4-8.2)
== END | disposition home or self-care (01) ==
LOC: RAD 06:09
DX: J32.8 Other chronic sinusitis (principal); E11.65 Type 2 diabetes mellitus with hyperglycemia; E50.9 Vitamin A deficiency, unspecified; D68.8 Other specified coagulation defects; R10.0 Acute abdomen; R31.29 Other microscopic hematuria; Z87.440 Personal history of urinary (tract) infections; I67.89 Other cerebrovascular disease; R05.3 Chronic cough

== ENCOUNTER → 2024-02-21 07:03 | Outpatient (CLI) | payer OTHER ==
[2024-02-21 08:40] LABS: URINE APPEARANCE Clear; URINE BILIRRUBIN Negative (NEGATIVE); URINE BLOOD Negative; URINE COLOR Yellow; URINE GLUCOSE Negative (NEGATIVE); URINE KETONE Negative (NEGATIVE); URINE LEUKOCYTE Negative; URINE NITRATE Negative; URINE PROTEIN Negative (NEGATIVE)
[2024-02-21 08:43] LABS: URINE RBC 16.9 uL (0.0-20.8); URINE WBC 2.6 uL (0.0-23.2)
[2024-02-21 09:09] LABS: ALBUMIN 3.7 gm/dL (3.4-5.0); BILIRUBIN TOTAL 1.65 mg/dL (0.3-1.2); CALCIUM 9.1 mg/dL (8.5-10.1); CHOL HDL RATIO 2.5 (0-5.0); CREATININE SERUM 0.96 mg/dL (0.70-1.30); GFR 76.36; GLOBULINA 3.2 G/DL (2.4-3.5); POTASSIUM 4.62 mEq/L (3.5-5.1); TOTAL PROTEIN 6.9 gm/dL (6.4-8.2)
[2024-02-21 09:44] LABS: HEMATOCRIT 40.4 % (39.0-48.0); HEMOGLOBIN 13.3 g/dL (13-16.00); MEAN CELL VOLUME 82.9 fL (80.0-100.00); MEAN CORPUSCULAR HEMOGLOBIN 27.3 pg (27.00-32.0); MEAN CORPUSCULAR HGB CONC 32.9 g/dl (32.0-36.0); PLATELET COUNT 208 K/uL (150-450); RED BLOOD COUNT 4.88 M/uL (4.00-6.00); RED CELL DISTRIBUTION WIDTH 15.7 % (11.5-14.5)
[2024-02-21 13:45] LABS: ob NEGATIVE (NEGATIVE)
== END | disposition home or self-care (01) ==
LOC: LAB 07:03
PROVIDERS: ATTEND Internal Medicine
DX: I11.9 Hypertensive heart disease without heart failure (principal); I10 Essential (primary) hypertension; I33.9 Acute and subacute endocarditis, unspecified; I69.90 Unspecified sequelae of unspecified cerebrovascular disease; Z95.810 Presence of automatic (implantable) cardiac defibrillator; J06.9 Acute upper respiratory infection, unspecified; M77.30 Calcaneal spur, unspecified foot; H35.713 Central serous chorioretinopathy, bilateral; Z68.36 Body mass index [BMI] 36.0-36.9, adult; Z12.11 Encounter for screening for malignant neoplasm of colon

== ENCOUNTER 2024-04-09 09:40 | Outpatient (CLI) | payer OTHER | END 2024-04-09 09:52 | disposition home or self-care (01) | LOC: RAD 09:40 | PROVIDERS: ATTEND Internal Medicine Rheumatology | DX: M54.50 Low back pain, unspecified (principal); M54.12 Radiculopathy, cervical region; M54.16 Radiculopathy, lumbar region; M54.17 Radiculopathy, lumbosacral region ==

== ENCOUNTER 2024-05-26 06:26 | Outpatient (CLI) | payer OTHER | END 2024-05-26 06:32 | disposition home or self-care (01) | LOC: LAB 06:26 | DX: I63.411 Cerebral infarction due to embolism of right middle cerebral artery (principal) ==

== ENCOUNTER 2024-05-27 06:19 | Outpatient (CLI) | payer OTHER ==
[2024-05-27 07:27] LABS: URINE APPEARANCE Clear; URINE BILIRRUBIN Negative (NEGATIVE); URINE BLOOD NHT; URINE COLOR Yellow; URINE GLUCOSE Negative (NEGATIVE); URINE KETONE Negative (NEGATIVE); URINE LEUKOCYTE Negative; URINE NITRATE Negative; URINE PROTEIN Negative (NEGATIVE)
[2024-05-27 07:31] LABS: URINE BACTERIA 15.9 uL (0.0-1933); URINE RBC 13.2 uL (0.0-20.8); URINE WBC 2.3 uL (0.0-23.2)
[2024-05-27 07:37] LABS: HEMATOCRIT 41.4 % (39.0-48.0); HEMOGLOBIN 13.6 g/dL (13-16.00); MEAN CELL VOLUME 83.4 fL (80.0-100.00); MEAN CORPUSCULAR HEMOGLOBIN 27.3 pg (27.00-32.0); MEAN CORPUSCULAR HGB CONC 32.7 g/dl (32.0-36.0); PLATELET COUNT 201 K/uL (150-450); RED BLOOD COUNT 4.97 M/uL (4.00-6.00); RED CELL DISTRIBUTION WIDTH 14.6 % (11.5-14.5)
[2024-05-27 08:13] LABS: ALBUMIN 3.5 gm/dL (3.4-5.0); BILIRUBIN TOTAL 1.54 mg/dL (0.3-1.2); CALCIUM 9.2 mg/dL (8.5-10.1); CHOL HDL RATIO 2.7 (0-5.0); CREATININE SERUM 1.07 mg/dL (0.70-1.30); GFR 67.37; GLOBULINA 3.1 G/DL (2.4-3.5); POTASSIUM 4.29 mEq/L (3.5-5.1); TOTAL PROTEIN 6.6 gm/dL (6.4-8.2)
[2024-05-27 09:02] LABS: ob NEGATIVE (NEGATIVE)
== END 2024-05-27 06:28 | disposition home or self-care (01) ==
LOC: LAB 06:19
PROVIDERS: ATTEND Internal Medicine
DX: I69.90 Unspecified sequelae of unspecified cerebrovascular disease (principal); Z95.810 Presence of automatic (implantable) cardiac defibrillator; I11.9 Hypertensive heart disease without heart failure; I10 Essential (primary) hypertension; J40 Bronchitis, not specified as acute or chronic; N41.0 Acute prostatitis; N39.9 Disorder of urinary system, unspecified; Z12.11 Encounter for screening for malignant neoplasm of colon

== ENCOUNTER → 2024-09-06 06:15 | Outpatient (CLI) | payer OTHER ==
[2024-09-06 07:08] LABS: HEMATOCRIT 42.7 % (39.0-48.0); MEAN CELL VOLUME 82.3 fL (80.0-100.00); MEAN CORPUSCULAR HGB CONC 32.8 g/dl (32.0-36.0); PLATELET COUNT 201 K/uL (150-450); RED BLOOD COUNT 5.19 M/uL (4.00-6.00); RED CELL DISTRIBUTION WIDTH 15.3 % (11.5-14.5)
[2024-09-06 07:42] LABS: PH,URINE 6.5 (5.0-8.0); URINE APPEARANCE Clear; URINE BILIRRUBIN Negative (NEGATIVE); URINE BLOOD Small; URINE COLOR Yellow; URINE GLUCOSE Negative (NEGATIVE); URINE KETONE Negative (NEGATIVE); URINE LEUKOCYTE Negative; URINE NITRATE Negative; URINE PROTEIN Negative (NEGATIVE)
[2024-09-06 07:46] LABS: URINE BACTERIA 15.9 uL (0.0-1933); URINE EPITHELIAL CELLS 1.4 uL (0.0-38.8); URINE RBC 18.8 uL (0.0-20.8); URINE WBC 2.4 uL (0.0-23.2)
[2024-09-06 07:53] LABS: ALBUMIN 3.7 gm/dL (3.4-5.0); BILIRUBIN TOTAL 1.86 mg/dL (0.3-1.2); CALCIUM 9.7 mg/dL (8.5-10.1); CHOL HDL RATIO 2.1 (0-5.0); CREATININE SERUM 1.05 mg/dL (0.70-1.30); GFR 68.86; GLOBULINA 3.3 G/DL (2.4-3.5); POTASSIUM 4.51 mEq/L (3.5-5.1)
== END | disposition home or self-care (01) ==
LOC: LAB 06:15
PROVIDERS: ATTEND Internal Medicine
DX: N41.0 Acute prostatitis (principal); Z95.810 Presence of automatic (implantable) cardiac defibrillator; I69.90 Unspecified sequelae of unspecified cerebrovascular disease; I10 Essential (primary) hypertension; J40 Bronchitis, not specified as acute or chronic; N39.9 Disorder of urinary system, unspecified; I11.0 Hypertensive heart disease with heart failure; I20.9 Angina pectoris, unspecified

== ENCOUNTER 2024-11-24 03:33 | Emergency (ER) | payer OTHER ==
[~2024-11-24] VITALS: Ht 175.3 cm; Wt 104.3 kg
[2024-11-24] MEDS ORDERED: PROTONIX40 MG (03:51)
[2024-11-24] MEDS ORDERED: XARELTO20 M1 (03:51)
[2024-11-24] MEDS ORDERED: GUAIFENESIN 200 MG/10 ML BLIST.PACK PO STA (04:43)
[2024-11-24] MEDS ORDERED: LEVALBUTEROL HCL 0.63 MG/3 ML SOLUTION IH SCH ×2 (04:45→08:00)
[2024-11-24 06:22] LABS: BASO % 0.9 % (0.1-1.2); EOS # 0.30 (0.04-0.54); EOS % 5.6 % (0.7-7.0); LYMPH # 2.23 (1.18-3.74); LYMPH % 41.4 % (19.3-53.1); MEAN PLATELET VOLUME 9.70 fl (9.4-12.4); MONO # 0.44 (0.24-0.82); MONO % 8.2 % (4.7-12.5); NEUT # 2.35 (1.56-6.13); NEUT % 43.7 % (34.0-71.1); RED CELL DISTRIBUTION WIDTH 14.9 % (11.6-14.4)
[2024-11-24] MEDS ORDERED: ACETAMINOPHEN 500 MG GEL..CAP PO STA (07:06)
[2024-11-24 07:11] LABS: ALT/SGPT 54.0 U/L (12-78); AST/SGOT 34.0 U/L (15-37); BILIRUBIN TOTAL 1.01 mg/dL (0.3-1.2); BUN CREA RATIO 13.0 (7.0-25.0); CREATININE SERUM 0.98 mg/dL (0.70-1.30); GFR 74.36; GLOBULINA 3.4 G/DL (2.4-3.5); GLUCOSE FASTING 107.0 mg/dL (65-100); OSMOLALITY SERUM 284.0 MOSM/KG (275-295)
[2024-11-24 09:00] LABS: COVID-19 AG NEGATIVE (NEGATIVE)
[2024-11-24] MEDS ORDERED: TUSNEL LIQUID178 ML PO (10:28)
[2024-11-24] MEDS ORDERED: ZITHROMAX500 MG PO (10:28)
[2024-11-24] MEDS ORDERED: XOPENEX CO1.25 MG/0. IH (10:28)
== END 2024-11-24 10:48 | disposition home or self-care (01) ==
LOC: ER 03:33
PROVIDERS: General Practice
DX: R05.9 Cough, unspecified (principal); R51.9 Headache, unspecified; Z20.822 Contact with and (suspected) exposure to COVID-19; I10 Essential (primary) hypertension

== ENCOUNTER 2024-12-13 06:07 | Outpatient (CLI) | payer OTHER ==
[~2024-12-13 06:07] MED LIST changes: +PROTONIX40 MG; +TUSNEL LIQUID178 ML PO; +XARELTO20 M1; +XOPENEX CO1.25 MG/0. IH
[2024-12-13 07:10] LABS: BASO % 1.2 % (0.1-1.2); EOS # 1.00 (0.04-0.54); LYMPH # 2.57 (1.18-3.74); LYMPH % 43.1 % (19.3-53.1); MEAN PLATELET VOLUME 9.60 fl (9.4-12.4); MONO # 0.51 (0.24-0.82); MONO % 8.6 % (4.7-12.5); NEUT # 1.80 (1.56-6.13); NEUT % 30.1 % (34.0-71.1); RED CELL DISTRIBUTION WIDTH 14.8 % (11.6-14.4)
[2024-12-13 07:19] LABS: URINE APPEARANCE Clear; URINE BILIRRUBIN Negative (NEGATIVE); URINE BLOOD Small; URINE COLOR Yellow; URINE GLUCOSE Negative (NEGATIVE); URINE KETONE Trace (NEGATIVE); URINE LEUKOCYTE Negative; URINE NITRATE Negative; URINE PROTEIN Negative (NEGATIVE); URINE UROBILINOGEN 1.0 E.U./dl
[2024-12-13 07:23] LABS: URINE BACTERIA 14.3 uL (0.0-1933); URINE EPITHELIAL CELLS 2.6 uL (0.0-38.8); URINE RBC 21.8 uL (0.0-20.8); URINE WBC 2.4 uL (0.0-23.2)
[2024-12-13 07:25] LABS: URINE CAST 0.87 uL (0.0-1.40)
[2024-12-13 07:58] LABS: ALT/SGPT 19.0 U/L (12-78); AST/SGOT 16.0 U/L (15-37); BILIRUBIN TOTAL 1.75 mg/dL (0.3-1.2); BUN CREA RATIO 10.0 (7.0-25.0); CREATININE SERUM 1.02 mg/dL (0.70-1.30); EOS % 16.8 % (0.7-7.0); GFR 71.01; GLOBULINA 3.1 G/DL (2.4-3.5); GLUCOSE FASTING 96.0 mg/dL (65-100); OSMOLALITY SERUM 282.0 MOSM/KG (275-295)
== END 2024-12-13 06:15 | disposition home or self-care (01) ==
LOC: LAB 06:07
PROVIDERS: ATTEND Internal Medicine
DX: I10 Essential (primary) hypertension (principal); Z95.810 Presence of automatic (implantable) cardiac defibrillator; I69.90 Unspecified sequelae of unspecified cerebrovascular disease; J40 Bronchitis, not specified as acute or chronic; N41.0 Acute prostatitis; N39.9 Disorder of urinary system, unspecified; I11.9 Hypertensive heart disease without heart failure; I20.9 Angina pectoris, unspecified

== ENCOUNTER 2025-02-28 09:13 | Outpatient (CLI) | payer OTHER | END 2025-02-28 09:16 | disposition home or self-care (01) | LOC: TOM 09:13 | PROVIDERS: ATTEND Internal Medicine Gastroenterology | DX: K59.00 Constipation, unspecified (principal); K92.1 Melena; Z95.1 Presence of aortocoronary bypass graft; Z79.01 Long term (current) use of anticoagulants; K57.90 Diverticulosis of intestine, part unspecified, without perforation or abscess without bleeding ==

== ENCOUNTER 2025-03-14 06:18 | Outpatient (CLI) | payer OTHER ==
[2025-03-14 07:11] LABS: BASO % 1.1 % (0.1-1.2); EOS # 0.99 (0.04-0.54); LYMPH # 2.33 (1.18-3.74); LYMPH % 35.5 % (19.3-53.1); MEAN PLATELET VOLUME 9.20 fl (9.4-12.4); MONO # 0.52 (0.24-0.82); MONO % 7.9 % (4.7-12.5); NEUT # 2.64 (1.56-6.13); NEUT % 40.1 % (34.0-71.1); RED CELL DISTRIBUTION WIDTH 15.2 % (11.6-14.4)
[2025-03-14 07:14] LABS: EOS % 15.1 % (0.7-7.0)
[2025-03-14 07:15] LABS: URINE APPEARANCE Clear; URINE BILIRRUBIN Negative (NEGATIVE); URINE COLOR Yellow; URINE GLUCOSE Negative (NEGATIVE); URINE KETONE Negative (NEGATIVE); URINE LEUKOCYTE Negative; URINE NITRATE Negative; URINE PROTEIN Negative (NEGATIVE); URINE UROBILINOGEN 0.2 E.U./dl
[2025-03-14 07:16] LABS: URINE BACTERIA 115.0 uL (0.0-1933); URINE EPITHELIAL CELLS 2.6 uL (0.0-38.8); URINE RBC 10.5 uL (0.0-20.8)
[2025-03-14 07:23] LABS: URINE BLOOD TRACES; URINE CAST 0.00 uL (0.0-1.40); URINE WBC 1.5 uL (0.0-23.2)
[2025-03-14 08:42] LABS: ALT/SGPT 18.0 U/L (12-78); AST/SGOT 17.0 U/L (15-37); BILIRUBIN TOTAL 1.26 mg/dL (0.3-1.2); BUN CREA RATIO 11.0 (7.0-25.0); CHOL HDL RATIO 2.5 (0-5.0); CREATININE SERUM 1.07 mg/dL (0.70-1.30); GFR 67.19; GLOBULINA 2.7 G/DL (2.4-3.5); GLUCOSE FASTING 92.0 mg/dL (65-100); HDL 53.0 mg/dl (40-60); LDL 60.0 mg/dl (0-130); OSMOLALITY SERUM 281.0 MOSM/KG (275-295); PROSTATIC SPECIFIC ANTIGEN 1.48 NG/ML (0.010-4.00); T3 UPTAKE 32.0 % (33-40); T4 TOTAL 6.64 UG/DL (4.5-12.1); TSH 2.21 uIU/mL (0.358-3.74); VLDL 22.0 (0-39)
[2025-03-14 13:17] LABS: T3 TOTAL 1.08 ng/ml (0.846-2.02); VITAMIN D3 25 HYDROXY 29.31 ng/ml (30-120)
== END 2025-03-14 06:24 | disposition home or self-care (01) ==
LOC: LAB 06:18
PROVIDERS: ATTEND Internal Medicine
DX: I69.90 Unspecified sequelae of unspecified cerebrovascular disease (principal); I10 Essential (primary) hypertension; J40 Bronchitis, not specified as acute or chronic; N41.0 Acute prostatitis; N39.0 Urinary tract infection, site not specified; I11.0 Hypertensive heart disease with heart failure; I20.9 Angina pectoris, unspecified

== ENCOUNTER 2025-03-31 12:05 | Outpatient (CLI) | payer OTHER | END 2025-03-31 12:09 | disposition home or self-care (01) | LOC: MRI 12:05 | DX: M54.17 Radiculopathy, lumbosacral region (principal) | CPT/HCPCS: 72148 ==